=== PATIENT | female | born 1995 ===

== ENCOUNTER 2019-04-09 21:30 | Emergency (ER) | payer MEDICAID ==
[~2019-04-09] VITALS: Ht 160 cm; Wt 64.1 kg
[2019-04-09] MEDS ORDERED: IBUP-2070 PO (21:59)
[2019-04-09 22:21] LABS: RAPID GROUP A STREP NEGATIVE (NEGATIVE)
[2019-04-09 22:30] LABS: INFLUENZA TYPE A NEGATIVE FOR TYPE A (NEGATIVE); INFLUENZA TYPE B NEGATIVE FOR TYPE B (NEGATIVE)
[2019-04-09] MEDS ORDERED: IBUPROFEN 600 MG TABLET PO ONE (23:00)
[2019-04-09] MEDS ORDERED: ACETAMINOPHEN 325 MG TABLET PO ONE (23:00)
[2019-04-09 23:03] VITALS: BP 115/69
== END 2019-04-09 23:18 | disposition home or self-care (01) ==
LOC: EMS 21:32
DX: J06.9 Acute upper respiratory infection, unspecified (principal)
CPT/HCPCS: 87430; 87804